=== PATIENT | male | born 1935 | race Caucasian/White ===

== ENCOUNTER 2021-04-06 20:35 | Emergency (ER) | payer OTHER ==
[~2021-04-06] VITALS: Ht 167.6 cm; Wt 81.7 kg
[2021-04-06] MEDS ORDERED: LOPRESSOR50 MG PO (21:06)
[2021-04-06] MEDS ORDERED: LISINOPRIL10 MG PO (21:06)
[2021-04-06] MEDS ORDERED: PLAVIX 75 MG TA75 M1 PO (21:06)
[2021-04-06] MEDS ORDERED: NITROSTAT0.4 M1 (21:07)
[2021-04-06] MEDS ORDERED: DESYREL150 MG PO (21:07)
[2021-04-06] MEDS ORDERED: ROSUVASTATIN CA10 MG PO (21:07)
[2021-04-06 21:36] LABS: BASOPHILS 0.4 % (0.0-2.0); EOSINOPHILS 2.2 % (0.0-3.0); HEMOGLOBIN 13.7 gm/dL (14.0-18.0); LYMPHOCYTES 16.5 % (24.0-44.0); MCH 33.4 pg (26.0-34.0); MCHC 33.5 g/dL (28.0-37.0); MCV 99.7 fL (80.0-100.0); MONOCYTES 8.4 % (1.0-8.0); PLATELET COUNT 141 thou/uL (150-400); POLYS 72.5 % (36.0-66.0); RBC 4.11 mil/uL (4.50-6.00); RDW 14.5 % (10.5-14.5); WBC 4.2 thou/uL (4.0-11.0)
[2021-04-06 21:49] LABS: CALCIUM 9.3 mg/dL (8.5-10.1); CREATININE 1.4 mg/dL (0.7-1.3); POTASSIUM 4.6 mmol/L (3.5-5.1)
[2021-04-06 21:51] LABS: ALBUMIN 3.6 g/dL (3.4-5.0); TOTAL BILIRUBIN 0.4 mg/dL (0.2-1.0); TOTAL PROTEIN 7.7 g/dL (6.4-8.2)
[2021-04-07 01:51] VITALS: BP 156/75
== END 2021-04-07 01:51 | disposition home or self-care (01) ==
LOC: ER 20:35
PROVIDERS: Nurse Practitioner
DX: R51.9 Headache, unspecified (principal); Z86.73 Personal history of transient ischemic attack (TIA), and cerebral infarction without residual deficits; Z95.1 Presence of aortocoronary bypass graft; Z98.890 Other specified postprocedural states; Z85.05 Personal history of malignant neoplasm of liver; Z88.0 Allergy status to penicillin; Z88.5 Allergy status to narcotic agent; Z88.7 Allergy status to serum and vaccine